=== PATIENT | male | born 1965 | race Caucasian/White ===

== ENCOUNTER 2023-01-23 11:31 | Inpatient (IN) | payer OTHER, BC ==
[2023-01-23 12:03] LABS: BASOPHILS ABSOLUTE AUTO 0.05 10^3/uL (0.00-0.50); BASOPHILS PERCENT AUTO 0.8 % (0-1); EOSINOPHILS ABSOLUTE AUTO 0.45 10^3/uL (0.00-1.50); EOSINOPHILS PERCENT AUTO 7.5 % (0-6); HEMATOCRIT 33.6 % (42.0-52.0); HEMOGLOBIN 11.8 g/dL (14.0-18.0); IMMATURE GRAN ABSOLUTE AUTO 0.03 10^3/uL (0.00-0.49); IMMATURE GRAN PERCENT AUTO 0.5 % (0.0-4.9); LYMPHOCYTES ABSOLUTE AUTO 1.08 10^3/uL (0.60-5.00); MEAN CORPUSCULAR HEMOGLOBIN 29.5 pg (27.0-32.0); MEAN CORPUSCULAR HGB CONC 35.1 g/dL (32.0-36.0); MONOCYTES ABSOLUTE AUTO 0.42 10^3/uL (0.00-1.50); NEUTROPHILS ABSOLUTE AUTO 3.98 x10^3/uL (1.80-8.00); NEUTROPHILS PERCENT AUTO 66.2 % (41-71); PLATELET COUNT,PLT 190 10^3/uL (150-400)
[2023-01-23 12:16] LABS: ALBUMIN 2.4 g/dL (3.4-5.0); BILIRUBIN TOTAL 0.2 mg/dL (0.0-1.0); C-REACTIVE PROTEIN 0.12 mg/dL (<=0.30); CALCIUM 8.3 mg/dL (8.4-10.1); CREATININE 2.5 mg/dL (0.7-1.3); EST CRCL DRUG DOSING (CG) 34.07 mL/min; MAGNESIUM 1.8 mg/dL (1.8-2.4); POTASSIUM,K 4.1 mEq/L (3.5-5.0); PROTEIN TOTAL,TP 6.3 g/dL (6.4-8.2)
[2023-01-23] MEDS ORDERED: Insulin Regular, Human 100 Units/ML 3 ML Vial SUBCUT ONE (12:19)
[2023-01-23] MEDS ORDERED: 50% Dextrose in Water 50 ML Syringe IVPUSH PRN (12:19)
[2023-01-23] MEDS ORDERED: Glucagon,Human Recombinant 1 MG Vial IM PRN (12:19)
[2023-01-23] MEDS ORDERED: Sodium Chloride 0.9% 1,000 ML IV SCH (12:30)
[2023-01-23 12:57] LABS: APPEARANCE,URINE CLEAR (CLEAR); BILIRUBIN,URINE NEGATIVE (NEGATIVE); COLOR,URINE YELLOW (YELLOW); GLUCOSE,URINE 500 mg/dL (NEGATIVE); KETONES,URINE NEGATIVE (NEGATIVE); LEUKOCYTE ESTERASE,URINE NEGATIVE (NEGATIVE); NITRITE,URINE NEGATIVE (NEGATIVE); OCCULT BLOOD,URINE SMALL (NEGATIVE); PROTEIN,URINE >=300 mg/dL (NEGATIVE); UROBILINOGEN,URINE 0.2 EU/dL (0.2-1.0)
[2023-01-23 12:57] LABS: O2 DELIVERY DEVICE ROOM AIR; PCO2 ARTERIAL 37 mm/Hg0 (35-45); PH,ARTERIAL 7.36 (7.35-7.45); PO2 ARTERIAL 75 mm/Hg (80-100)
[2023-01-23 12:58] LABS: BASE EXCESS ARTERIAL -4.6 (-2.0-3.0); BICARBONATE,ARTERIAL 20.9 mm/L (22.0-26.0); O2 SATURATION ARTERIAL 94 % (95-98)
[2023-01-23] MEDS ORDERED: Metoprolol Tartrate 5 MG/5 ML SDV IVPUSH ONE (13:06)
[2023-01-23 13:08] LABS: RBC,URINE 0-5 /HPF (0-5)
[2023-01-23 13:09] LABS: BACTERIA,URINE OCCASIONAL /HPF (NOT SEEN); SQUAMOUS EPITHELIAL CELLS,UR FEW /HPF (NOT SEEN); WBC,URINE 0-5 /HPF (0-5)
[2023-01-23] MEDS ORDERED: NS + KCl 20mEq/L 1,000 ML IV SCH (13:15)
[2023-01-23] MEDS ORDERED: Insulin Regular in 0.9 % NACL 100 ML IV SCH (13:15)
[2023-01-23] MEDS ORDERED: Acetaminophen 325 MG Tab PO PRN (14:42)
[2023-01-23] MEDS ORDERED: Ondansetron 4 MG/2 ML SDV IV PRN (14:42)
[2023-01-23] MEDS ORDERED: Polyethylene Glycol 3350 Powder 17 GM Packet PO PRN (14:42)
[2023-01-23] MEDS ORDERED: Docusate Sodium 100 MG Cap PO PRN (14:42)
[2023-01-23] MEDS ORDERED: Ondansetron 4 MG Tab.DIS PO PRN (14:42)
[2023-01-23] MEDS ORDERED: Dextrose 5%-0.45% NaCl 1,000 ML IV SCH (15:30)
[2023-01-23] MEDS: Nicotine 21 MG/24 Hr Patch TRDERM SCH (15:30)
[2023-01-23 16:36] LABS: ALBUMIN 2.3 g/dL (3.4-5.0); BILIRUBIN TOTAL 0.2 mg/dL (0.0-1.0); CALCIUM 8.5 mg/dL (8.4-10.1); CREATININE 2.2 mg/dL (0.7-1.3); EST CRCL DRUG DOSING (CG) 38.71 mL/min
[2023-01-23] MEDS ORDERED: Insulin Regular, Human 100 Units/ML 3 ML Vial SUBCUT SCH (20:00)
[2023-01-23] MEDS: amLODIPine 10 MG Tab PO SCH (20:02)
[2023-01-23] MEDS: Fenofibrate 160 MG Tab PO SCH (20:02)
[2023-01-23] MEDS: Cholecalciferol (Vitamin D3) 5,000 UNIT Tab PO SCH (20:02)
[2023-01-23] MEDS: atorvaSTATin 20 MG Tab PO SCH (20:02)
[2023-01-23] MEDS: Spironolactone 25 MG Tab PO SCH (20:02)
[2023-01-23] MEDS: Enoxaparin 40 MG/0.4 ML Syringe SUBCUT SCH (20:03)
[2023-01-23] MEDS: Sodium Chloride 0.9% 1,000 ML IV SCH (20:14)
[2023-01-24] MEDS: Sodium Chloride 0.9% 1,000 ML IV SCH ×2 (06:11→16:01)
[2023-01-24 07:34] LABS: BASOPHILS ABSOLUTE AUTO 0.05 10^3/uL (0.00-0.50); BASOPHILS PERCENT AUTO 0.7 % (0-1); EOSINOPHILS ABSOLUTE AUTO 0.53 10^3/uL (0.00-1.50); EOSINOPHILS PERCENT AUTO 7.9 % (0-6); HEMATOCRIT 33.6 % (42.0-52.0); HEMOGLOBIN 11.6 g/dL (14.0-18.0); IMMATURE GRAN ABSOLUTE AUTO 0.02 10^3/uL (0.00-0.49); IMMATURE GRAN PERCENT AUTO 0.3 % (0.0-4.9); LYMPHOCYTES ABSOLUTE AUTO 1.14 10^3/uL (0.60-5.00); LYMPHOCYTES PERCENT AUTO 16.9 % (24-44); MEAN CORPUSCULAR HEMOGLOBIN 29.4 pg (27.0-32.0); MEAN CORPUSCULAR HGB CONC 34.5 g/dL (32.0-36.0); MEAN CORPUSCULAR VOLUME 85.3 fL (83.0-97.0); MONOCYTES ABSOLUTE AUTO 0.46 10^3/uL (0.00-1.50); MONOCYTES PERCENT AUTO 6.8 % (0-10); NEUTROPHILS ABSOLUTE AUTO 4.54 x10^3/uL (1.80-8.00); NEUTROPHILS PERCENT AUTO 67.4 % (41-71); PLATELET COUNT,PLT 178 10^3/uL (150-400); RED BLOOD CELL COUNT 3.94 x10^6/uL (4.50-6.00); WHITE BLOOD CELL COUNT,WBC 6.7 10^3/uL (4.0-11.0)
[2023-01-24 08:01] LABS: ALBUMIN 2.1 g/dL (3.4-5.0); BILIRUBIN TOTAL 0.2 mg/dL (0.0-1.0); CALCIUM 8.1 mg/dL (8.4-10.1); EST CRCL DRUG DOSING (CG) 42.58 mL/min; POTASSIUM,K 4.5 mEq/L (3.5-5.0); PROTEIN TOTAL,TP 5.7 g/dL (6.4-8.2)
[2023-01-24] MEDS: Insulin Regular, Human 100 Units/ML 3 ML Vial SUBCUT SCH ×4 (08:28→21:34)
[2023-01-24] MEDS: Nicotine 21 MG/24 Hr Patch TRDERM SCH (08:32)
[2023-01-24] MEDS: amLODIPine 10 MG Tab PO SCH (19:30)
[2023-01-24] MEDS: Fenofibrate 160 MG Tab PO SCH (19:30)
[2023-01-24] MEDS: atorvaSTATin 20 MG Tab PO SCH (19:30)
[2023-01-24] MEDS: Enoxaparin 40 MG/0.4 ML Syringe SUBCUT SCH (19:30)
[2023-01-24] MEDS: Cholecalciferol (Vitamin D3) 5,000 UNIT Tab PO SCH (19:30)
[2023-01-24] MEDS: Spironolactone 25 MG Tab PO SCH (19:31)
[2023-01-25] MEDS: Sodium Chloride 0.9% 1,000 ML IV SCH (02:03)
[2023-01-25 08:02] LABS: BASOPHILS ABSOLUTE AUTO 0.06 10^3/uL (0.00-0.50); BASOPHILS PERCENT AUTO 0.9 % (0-1); EOSINOPHILS ABSOLUTE AUTO 0.51 10^3/uL (0.00-1.50); EOSINOPHILS PERCENT AUTO 7.3 % (0-6); HEMATOCRIT 35.2 % (42.0-52.0); HEMOGLOBIN 12.1 g/dL (14.0-18.0); IMMATURE GRAN ABSOLUTE AUTO 0.02 10^3/uL (0.00-0.49); IMMATURE GRAN PERCENT AUTO 0.3 % (0.0-4.9); LYMPHOCYTES ABSOLUTE AUTO 1.19 10^3/uL (0.60-5.00); LYMPHOCYTES PERCENT AUTO 17.1 % (24-44); MEAN CORPUSCULAR HEMOGLOBIN 29.2 pg (27.0-32.0); MEAN CORPUSCULAR HGB CONC 34.4 g/dL (32.0-36.0); MEAN CORPUSCULAR VOLUME 84.8 fL (83.0-97.0); MONOCYTES ABSOLUTE AUTO 0.48 10^3/uL (0.00-1.50); MONOCYTES PERCENT AUTO 6.9 % (0-10); NEUTROPHILS ABSOLUTE AUTO 4.68 x10^3/uL (1.80-8.00); NEUTROPHILS PERCENT AUTO 67.5 % (41-71); PLATELET COUNT,PLT 179 10^3/uL (150-400); RED BLOOD CELL COUNT 4.15 x10^6/uL (4.50-6.00); WHITE BLOOD CELL COUNT,WBC 6.9 10^3/uL (4.0-11.0)
[2023-01-25] MEDS: Nicotine 21 MG/24 Hr Patch TRDERM SCH (08:11)
[2023-01-25 08:21] LABS: ALBUMIN 2.1 g/dL (3.4-5.0); BILIRUBIN TOTAL 0.2 mg/dL (0.0-1.0); CALCIUM 7.7 mg/dL (8.4-10.1); CREATININE 1.9 mg/dL (0.7-1.3); EST CRCL DRUG DOSING (CG) 44.82 mL/min; POTASSIUM,K 4.5 mEq/L (3.5-5.0); PROTEIN TOTAL,TP 5.7 g/dL (6.4-8.2)
[2023-01-25] MEDS: Insulin Regular, Human 100 Units/ML 3 ML Vial SUBCUT SCH (08:25)
== END 2023-01-25 10:11 | disposition home or self-care (01) | DRG 420 ==
LOC: CC.ED 11:31 → CC.MS 13:48 → UNDOADMIN 13:57
PROVIDERS: ADMIT Nurse Practitioner Family; ATTEND Nurse Practitioner Family
PROC: 4A033R1 Measurement of Arterial Saturation, Peripheral, Percutaneous Approach (ICD-10-PCS; principal; 2023-01-23)
PROC: 3E033VG Introduction of Insulin into Peripheral Vein, Percutaneous Approach (ICD-10-PCS; 2023-01-23)
DX: E11.65 Type 2 diabetes mellitus with hyperglycemia (principal); N17.9 Acute kidney failure, unspecified; H43.13 Vitreous hemorrhage, bilateral; E11.39 Type 2 diabetes mellitus with other diabetic ophthalmic complication; E78.5 Hyperlipidemia, unspecified; I10 Essential (primary) hypertension; Z91.018 Allergy to other foods; Z88.8 Allergy status to other drugs, medicaments and biological substances
CPT/HCPCS: 36415; 36600; 70450; 80053; 81001; 82800; 82803; 82947; 83735; 85025; 86140; 93005; 93010; 96361; 96374; 96375; 99223; 99233; 99238; 99285-25; A9270-GY; J1650; J1815-GY; J3480; J3490; J7030; J7042